=== PATIENT | female | born 1965 | race Caucasian/White ===

== ENCOUNTER → 2020-01-19 | Outpatient (CLI) | payer OTHER ==
[~2020-01-19] MED LIST: DIAZEPAM 2MG TAB2 MG OR; EXCEDRIN CAPLE1 EACH PO; ZOFRAN ODT4 MG PO
== END ==
LOC: M.RAD 09:41
PROVIDERS: ATTEND Family Medicine
DX: Z12.31 Encounter for screening mammogram for malignant neoplasm of breast (principal)